=== PATIENT | female | born 1935 | race Caucasian/White ===

== ENCOUNTER 2019-08-27 06:12 | Inpatient (IN) | payer MEDICARE, MEDICAID ==
[~2019-08-27] VITALS: Ht 162.6 cm; Wt 87.1 kg
--- NOTE | 2019-08-27 06:27 | NUR ---
PT WAS AURELIA MANLEY FROM [facility] FOR C/O ALOC. PT WAS ASSISTED TO THE BED AND WAS PLACED ON A MONITOR. PT WAS ALSO FOUND FEBRILE DURING TRIAGE. ISOLATION PRECAUTION OBSERVED. WILL CONT TO MONITOR.
[2019-08-27] MEDS ORDERED: IV NS 0.9% 1,000 ML BAG IV ONE ×2 (06:30→08:00)
--- NOTE | 2019-08-27 06:30 | NUR ---
URINE COLLECTED AND SENT TO LAB
--- NOTE | 2019-08-27 06:32 | NUR ---
KIRSTEN GASPAR, CALLED AND REQUESTING PT TO BE TRANSFERRED TO [facility]. DR NATION MADE AWARE, CHASITY'S PHONE NUMBER: [phone]
--- NOTE | 2019-08-27 06:33 | NUR ---
Note steven in EDM - 08/27/19 at 0719 by ABIODUN PT WAS BIB RA FROM [facility] FOR C/O ALOC. PT WAS ASSISTED TO THE BED AND WAS PLACED ON A MONITOR. PT WAS ALSO FOUND AFEBRILE DURING TRIAGE. ISOLATION PRECAUTION OBSERVED. WILL CONT TO MONITOR.
[2019-08-27] MEDS ORDERED: ACETAMINOPHEN 650 MG/SUPP.RECT RC ONE ×3 (06:40→07:00)
--- NOTE | 2019-08-27 06:55 | NUR ---
RADIOLOGY AT BEDSIDE FOR XRAY
--- NOTE | 2019-08-27 07:00 | NUR ---
DR JOHNSON ON THE PHONE WITH DR. HDZ.
[2019-08-27 07:12] LABS: BASOPHILS # (AUTO) 0.2 /CMM (0.0-0.2); BASOPHILS % (AUTO) 0.6 % (0.0-2.0); EOSINOPHILS % (AUTO) 0.5 % (0.0-6.0); HEMATOCRIT 45 % (33-45); HEMOGLOBIN 14.2 g/dL (11.5-14.8); LYMPHOCYTES % (AUTO) 18.2 % (20.0-44.0); MEAN CORPUSCULAR HGB CONC 32 g/dl (31.0-36.0); MEAN CORPUSCULAR VOLUME 90 fL (82-100); MONOCYTES # (AUTO) 1.2 /CMM (0.1-1.30); MONOCYTES % (AUTO) 4.2 % (2.0-12.0); NEUTROPHILS % (AUTO) 76.5 % (43.0-81.0); PLATELET COUNT (AUTO) 314 /CMM (150-450); RED BLOOD CELL COUNT(AUTO) 4.96 MIL/uL (4.0-5.2); WHITE BLOOD COUNT (AUTO) 27.5 K/uL (4.3-11.0)
[2019-08-27 07:16] LABS: BILIRUBIN,URINE NEGATIVE (NEGATIVE); BLOOD, URINE TRACE-INTA Ery/uL (NEGATIVE); COLOR,URINE YELLOW (YELLOW); KETONES,URINE NEGATIVE (NEGATIVE); LEUKOCYTE ESTERASE ,URINE SMALL (NEGATIVE); NITRITE, URINE NEGATIVE (NEGATIVE); PROTEIN,URINE NEGATIVE (NEGATIVE); UGLUCOSE NEGATIVE (NEGATIVE); UROBILINOGEN,URINE 0.2 EU/dL (0.2)
[2019-08-27 07:20] LABS: APPEARANCE,URINE SLIGHTLY CLOUDY (CLEAR)
--- NOTE | 2019-08-27 07:20 | NUR ---
covid swab sent
--- NOTE | 2019-08-27 07:21 | NUR ---
CLINICAL INFORMATION FAXED TO [facility] [place] PER DR. HDZ'S REQUEST
--- NOTE | 2019-08-27 07:22 | NUR ---
RECEIVED REPORT FROM EDER CANTRELL FOR [place]. PT IS AAOX1, NOT IN RESPIRATORY DISTRESS, V/S STABLE, KEPT RESTED AND COMFORTABLE. WILL CONTINUE TO MONITOR.
[2019-08-27] MEDS ORDERED: CEFTRIAXONE 1GM BAG (ER ONLY) 50 ML IV ONE ×2 (07:27→07:30)
[2019-08-27 07:30] LABS: ALANINE AMINOTRANSFERASE 23 U/L (12-78); ALKALINE PHOSPHATASE 47 U/L (46-116); ASPARTATE AMINOTRANSFERASE 19 U/L (15-37); BILIRUBIN,DIRECT 0.2 mg/dL (0.0-0.2); BILIRUBIN,TOTAL 0.7 mg/dL (0.2-1.0); CALCIUM, SERUM 9.6 mg/dL (8.5-10.1); CARBON DIOXIDE 19 mmol/L (21-32); CHLORIDE 101 mmol/L (98-107); CREATININE 1.2 mg/dL (0.6-1.3); GLUCOSE 191 mg/dL (74-106); POTASSIUM 3.5 mmol/L (3.5-5.1); SODIUM SERUM 137 mmol/L (136-145); TOTAL PROTEIN, SERUM 6.7 g/dL (6.4-8.2); UREA NITROGEN, BLOOD 15 mg/dL (7-18)
[2019-08-27] MEDS ORDERED: CLINDAMYCIN 600 MG in IV D5W 100 ML IV ONE (07:30)
[2019-08-27 07:45] LABS: BACTERIA,URINE Few /HPF (None Seen); SQUAMOUS EPITHELIAL CELL,UR Many /HPF (None Seen); WBC,URINE 25-35 /HPF (0-3)
--- NOTE | 2019-08-27 08:07 | NUR ---
PAGED [facility].
--- NOTE | 2019-08-27 08:30 | NUR ---
NURSING SUP GAVE 107.
--- NOTE | 2019-08-27 08:55 | NUR ---
REPORT GIVEN TO EDER BAH FOR [place].
[2019-08-27] MEDS ORDERED: FOLI0.8T PO (09:09)
[2019-08-27] MEDS ORDERED: GABA-532 PO (09:09)
[2019-08-27] MEDS ORDERED: BISA10SU11 RC (09:09)
[2019-08-27] MEDS ORDERED: CRAN400C PO (09:09)
[2019-08-27] MEDS ORDERED: LANS30CA56 PO (09:09)
[2019-08-27] MEDS ORDERED: MAGN400O6 PO (09:09)
[2019-08-27] MEDS ORDERED: MULT-134 PO (09:09)
[2019-08-27] MEDS ORDERED: GUAI-671 PO (09:09)
[2019-08-27] MEDS ORDERED: CARV3.12 PO (09:09)
[2019-08-27] MEDS ORDERED: CALC-883 PO (09:09)
[2019-08-27] MEDS ORDERED: CYAN-3 IJ (09:09)
[2019-08-27] MEDS ORDERED: LEVE500T9 PO (09:09)
[2019-08-27] MEDS ORDERED: DOCU-141 PO (09:09)
[2019-08-27] MEDS ORDERED: APIX2.5T PO (09:09)
[2019-08-27] MEDS ORDERED: MIDO5TAB4 PO (09:09)
[2019-08-27] MEDS ORDERED: ERGO50CA PO (09:09)
[2019-08-27] MEDS ORDERED: ASCO500C16 PO (09:09)
[2019-08-27] MEDS ORDERED: LACT1CAP7 PO (09:09)
[2019-08-27] MEDS ORDERED: INSU100I40 SQ (09:09)
[2019-08-27] MEDS ORDERED: LANS15TA5 PO (09:09)
[2019-08-27] MEDS ORDERED: AMOX500C2 PO (09:09)
[2019-08-27] MEDS ORDERED: FLUT16SP16 NS (09:09)
[2019-08-27] MEDS ORDERED: ACET325T53 PEG (09:23)
[2019-08-27] MEDS ORDERED: POLY15DR40 OP (09:23)
[2019-08-27] MEDS ORDERED: LEVA1.2528 IH ×2 (09:23)
[2019-08-27] MEDS ORDERED: PRED5TAB PO (09:23)
[2019-08-27] MEDS ORDERED: HYDR-4384 PO (09:23)
[2019-08-27] MEDS ORDERED: SENN-175 PO (09:23)
[2019-08-27] MEDS ORDERED: MOME17SP (09:23)
[2019-08-27 09:40] VITALS: BP 96/47
--- NOTE | 2019-08-27 09:40 | NUR ---
ADMIT TO [facility] RECEIVED PT BROUGHT IN VIA GURNEY BY ER NURSE. NO CARDIAC OR RESP DISTRESS NOTED ON O2 2L/MIN VIA NC. SATURATING AT 95%. BREATHING EVEN AND UNLABORED. COVID PENDING AT THIS TIME. PT PLACED ON CARDIAC TELE MONITOR SHOWING NSR. IV ACCESS NOTED ON R AC G20. INTACT AND PATENT AND FLUSHING WELL. NO S/S OF INFECTION OR INFILTRATION NOTED. SAFETY PRECAUTIONS IN PLACE. BED LOCKED AND IN LOS POSITION. SIDE RAILS UP X2. BED ALALRM ON. CALL LIGHT WITHIN REACH
[2019-08-27] MEDS ORDERED: IV NS 0.9% 1,000 ML IV PRN (09:46)
[2019-08-27] MEDS ORDERED: BISACODYL SUPP (10 MG) 10 MG/SUPP.RECT SUPP.RECT RC PRN (09:54)
[2019-08-27] MEDS ORDERED: MAG HYDROX/AL HYDROX/SIMETH 30 ML UDC PO PRN (10:00)
[2019-08-27] MEDS ORDERED: HYDROCODONE/APAP 5/325MG 1 EACH TABLET PO PRN (10:00)
[2019-08-27] MEDS ORDERED: ONDANSETRON HCL/PF 4 MG/2 ML VIAL IVP PRN (10:00)
[2019-08-27] MEDS ORDERED: MAGNESIUM HYDROXIDE 30 ML UDC PO PRN (10:00)
[2019-08-27] MEDS ORDERED: ACETAMINOPHEN 325 MG TABLET PO PRN (10:00)
[2019-08-27] MEDS ORDERED: Z GUARD REMEDY 2 OZ OINT TP PRN (10:00)
[2019-08-27] MEDS: CARVEDILOL 3.125 MG TABLET PO SCH ×2 (10:51→17:31)
[2019-08-27] MEDS ORDERED: LACTOBACILLUS RHAMNOSUS GG 1 EACH CAP.SPRINK PO SCH (10:58)
[2019-08-27] MEDS ORDERED: VANCOMYCIN 1.5 GM in IV D5W 500 ML IV ONE (11:02)
[2019-08-27] MEDS ORDERED: FEE PK DOSING 1 MIN EA MC ONE (11:03)
[2019-08-27 11:19] LABS: ABG BASE EXCESS -5.3 mmol/L; ABG OXYGEN SATURATION 93.9 % (92.0-98.5); ABG PCO2 29.8 mmHg (35.0-45.0); ABG PH 7.403 (7.350-7.450); ABG PO2 69.9 mmHg (75.0-100.0); COHb 0.2 % (0.5-1.5); MetHb 0.2 % (0.0-1.5); O2Hb 93.5 % (94.0-97.0); SITE, ABG Right Radial; VENT MODE, BG 3L N/C
[2019-08-27] MEDS: LEVETIRACETAM (250 MG) 250 MG TABLET PO SCH ×2 (11:25→17:32)
[2019-08-27] MEDS ORDERED: PIPERACILLIN /TAZOBACTAM 4.5 G in IV D5W 50 ML IV SCH (12:00)
--- NOTE | 2019-08-27 12:00 | NUR ---
BODY CHECK BODY CHECK DONE, PT NOTED WITH THE FOLLOWING RUE SCATTERED DISCOLORATIONS LUE SCATTERED DISCOLORATIONS L HEEL REDNESS L 1ST TOE REDNESS L BUTTOCK REDNESS R KNEE OLD SURGICAL INCISION R LOWER LEG DISCOLORATIONS R 1ST TOE REDNESS R FOREARM SKIN TEAR
[2019-08-27] MEDS: MIDODRINE HCL (5MG) 5 MG TABLET PO SCH ×2 (12:16→17:00)
[2019-08-27] MEDS: GABAPENTIN 100 MG CAPSULE PO SCH ×3 (12:20→21:19)
[2019-08-27] MEDS: PIPERACILLIN /TAZOBACTAM 3.375 G in IV D5W 50 ML IV SCH ×3 (12:23→23:08)
[2019-08-27] MEDS ORDERED: APIXABAN 2.5 MG TABLET PO SCH (17:00)
[2019-08-27] MEDS ORDERED: MOMETASONE FUROATE NASAL SUSP 17 GM BOTTLE SCH (17:00)
--- NOTE | 2019-08-27 18:50 | NUR ---
TRANSFER PER DENITA BENITEZ, PT WILL BE TRANSFERRED TO [facility].
--- NOTE | 2019-08-27 19:45 | NUR ---
TRANSFER REPORT GIVEN TO JEFFREY GAINES FROM [facility]
--- NOTE | 2019-08-27 19:57 | NUR ---
GLOVE CUTTER CLOSING NOTES PT IN BED ASLEEP BUT AROUSABLE. NO CARDIAC OR RESP DISTRESS NOTED ON O2 2L/MIN VIA NC. SATURATING AT 95%. BREATHING EVEN AND UNLABORED. COVID PENDING AT THIS TIME. PT PLACED ON CARDIAC TELE MONITOR SHOWING NSR. IV ACCESS NOTED ON R AC G20. INTACT AND PATENT AND FLUSHING WELL. NO S/S OF INFECTION OR INFILTRATION NOTED. SAFETY PRECAUTIONS IN PLACE. BED LOCKED AND IN LOS POSITION. SIDE RAILS UP X2. BED ALARM ON. CALL LIGHT WITHIN REACH. REPORT GIVEN TO JHONATHAN FOR [place]. ALL D/C PACKET AND PAPER WORKS PREPARED AND COMPLETED.
[2019-08-27 20:00] VITALS: BP 113/65
--- NOTE | 2019-08-27 20:00 | NUR ---
RN NOTE RECEIVED PT IN BED, AO X1-2, SPEAKS AND UNDERSTANDS TAJIK ONLY, NO S/SX OF ACUTE DISTRESS AT THIS TIME. NO SOB NOTED. BREATHING IS EVEN AND UNLABORED. SATURATING >95% AT 4 LPM. PATIENT ON TELE MONITOR READING SR AT 80'S. NOTED IV SITE AT RAC G20 WITH NS AT 75 ML/HR; PATENT AND FLUSHING WELL ,NO S/S OF INFECTION OR INFILTRATION. MULTIPLE DISCOLORATION NOTED AT BUE, L BUTTOCK, R KNEE, RLE, B GREAT TOES, AND SKIN TEAR AT RIGHT FOREARM. SAFETY MEASURES IMPLEMENTED PER PROTOCOL. PATIENT BED ALARM IS ON. HEAD OF BED ELEVATED. BED IS LOCKED, IN LOWEST POSITION AND SIDE RAILS UPX2. CALL LIGHT WITHIN REACH OF THE PATIENT. WILL CONTINUE TO MONITOR AND REASSESS FOR ANY CHANGES.
--- NOTE | 2019-08-27 21:00 | NUR ---
RN NOTE STARTED ANOTHER IV LINE AT [facility] USING G24, IV LINE AT RAC MAY GET DISLODGED DURING MOVEMENT. ASEPTIC TECHNIQUE WAS OBSERVED. GI[facility]NY PATENT AND FLUSHING WELL. NEEDS ATTENDED AND ANTICIPATED. KEPT CLEAN DRY AND COMFORTABLE. CALL LIGHT WITHIN EACH . PATIENT FOR TRANSFER TO [facility] REQUESTED BY FAMILY. AWAITING AMBULANCE.
--- NOTE | 2019-08-27 21:30 | NUR ---
paz rn notes Again follow up status of ambulance spoke again to domingo again she said there coming .waiting for transportation.
[2019-08-27] MEDS ORDERED: SENNOSIDES 8.6 MG TABLET PO SCH (22:00)
--- NOTE | 2019-08-27 22:30 | NUR ---
RN NOTE AMBULANCE ARRIVED HOWEVER, BLS ONLY, NO PROC TECH. PATIENT ON RUSSELL STATUS AND CANNOT BE TRANSFERRED WITHOUT PROC TECH. SURGEON'S ASSISTANT MADE AWARE.
--- NOTE | 2019-08-27 22:30 | NUR ---
deana rn notes Ambulance arrived but only BLS . Pts is a Deana status ,spoke to [facility] spoke to Bell relayed concerned she said right now they cannot provide acls so they have to find another ambulance with acls, md enriquez made aware . place a call to [facility] spoke to harry made them aware that pts will be transfer bari not tonite. spoke to noah clay made aware ,of what happen ,she said she does not want the pts to tranfer in the middle of the nite, will let her know what time the pts gonna be transfer in the morning .will update her.ride assembly supervisor keshia made aware of incidence.
--- NOTE | 2019-08-27 22:48 | NUR ---
paz rn notes follow up ambulance [facility] spoke to [facility] she said ambulance is coming at 9pm.
[2019-08-28] VITALS: BP 112/49
--- NOTE | 2019-08-28 00:15 | NUR ---
paz rn notes spoke to elaine from [facility] requesting for ambulance with acls with reference #[id number] will follow up in a hour .
--- NOTE | 2019-08-28 02:00 | NUR ---
paz rn notes informed noah daughter pts eta to transfer to [facility] is 3am , she said she does not want 3am ,instead she want 7am , spoke to jasiel from [facility] and she said she gonna arrange for 7am with new trip #[id number]. [facility] made aware.
--- NOTE | 2019-08-28 02:10 | NUR ---
RN NOTE NOTED NEW EMT SNUFF CONTAINER INSPECTOR SCHEDULE FOR TRANSFER TO [facility] AT 0700 PER CATH LAB TECHNOLOGIST VERIFIED WITH LATIA OF [facility]. CALLED [facility], SPOKE WITH SAGAR FROM [facility], NOTIFIED AND ACKNOWLEDGED NEW SCHEDULE.
--- NOTE | 2019-08-28 02:17 | NUR ---
LAB CALLED WITH NEGATIVE COVID RESULT.
--- NOTE | 2019-08-28 03:00 | NUR ---
RN NOTE NOTED NEGATIVE COVID TEST RESULT X2. CALLED [facility], SPOKE WITH YANCI [place] [address] [place] [address]. ADVISED OF NEGATIVE COVID STATUS. ACKNOWLEDGED INFORMATION GIVEN.
[2019-08-28 04:00] VITALS: BP 115/61
[2019-08-28] MEDS: PIPERACILLIN /TAZOBACTAM 3.375 G in IV D5W 50 ML IV SCH (05:08)
[2019-08-28 06:30] LABS: BASOPHILS # (AUTO) 0.1 /CMM (0.0-0.2); BASOPHILS % (AUTO) 0.8 % (0.0-2.0); EOSINOPHILS % (AUTO) 2.1 % (0.0-6.0); HEMATOCRIT 37 % (33-45); HEMOGLOBIN 12.1 g/dL (11.5-14.8); LYMPHOCYTES # (AUTO) 2.1 /CMM (0.8-4.8); LYMPHOCYTES % (AUTO) 17.3 % (20.0-44.0); MEAN CORPUSCULAR HGB CONC 32 g/dl (31.0-36.0); MEAN CORPUSCULAR VOLUME 91 fL (82-100); MONOCYTES # (AUTO) 0.7 /CMM (0.1-1.30); MONOCYTES % (AUTO) 5.8 % (2.0-12.0); NEUTROPHILS # (AUTO) 8.9 /CMM (1.8-8.9); PLATELET COUNT (AUTO) 202 /CMM (150-450); RED BLOOD CELL COUNT(AUTO) 4.13 MIL/uL (4.0-5.2)
--- NOTE | 2019-08-28 07:20 | NUR ---
RN NOTE PATIENT TRANSFERRED TO [facility]. REPORT GIVEN TO EMT PERSONNEL, REMINDED OF NEGATIVE COVID TEST RESULT X2. BELONGINGS ACCOUNTED FOR, IV ACCESS AT [facility] AND [facility] INTACT. PATIENT ON SUPPLEMENTAL OXYGEN AT 2 LPM. VITAL SIGNS STABLE, NO ACUTE DISTRESS NOTED, BREATHING UNLABORED. PATIENT PICKED UP VIA AMBULANCE IN A GURNEY ACCOMPANIED BY 2 EMT PERSONNEL IN STABLE CONDITION.
--- NOTE | 2019-08-28 07:25 | NUR ---
RN NOTE TELEPHONE CALL TO [facility] TO ADVISE PATIENT HAS BEEN PICKED BY AMBULANCE AND IS NOW ON THE WAY. SPOKE WITH SAGAR GAINES. SAID THEY THOUGHT THE TRANSFER WAS CANCELLED PATIENT IS NEGATIVE AND THE INITIAL ROOM NUMBER ASSIGNED ROOM 567 IS IN A COVID UNIT. SAGAR GAINES TALKED TO THE ADVANCED MANUFACTURING ENGINEER, PUT THE CALL ON HOLD FOR A FEW MINUTES, CAME BACK AND SAID SHE ADVISED THE ADVANCED MANUFACTURING ENGINEER OF THE SITUATION, SAID THEY ARE STILL TRYING TO FIND A ROOM FOR THE PATIENT IN A NON COVID UNIT. WILL ENDORSE TO AM SHROUD LINE TIER
--- NOTE | 2019-08-28 08:18 | NUR ---
GAVE REPORT TO GEMA GAINES FROM [facility] ,PT. WENT TO [facility] [phone].
[2019-08-28] MEDS ORDERED: DOCUSATE SODIUM 100 MG CAPSULE PO SCH (09:00)
[2019-08-28] MEDS ORDERED: VANCOMYCIN 1.25 GM in IV D5W 250 ML IV SCH (09:00)
== END 2019-08-28 07:12 | disposition short-term general hospital (02) | DRG 133 ==
LOC: ER 06:12 → TELE-TD 09:13
PROVIDERS: ADMIT Internal Medicine; ATTEND Internal Medicine
DX: J96.01 Acute respiratory failure with hypoxia (principal); J69.0 Pneumonitis due to inhalation of food and vomit; E11.9 Type 2 diabetes mellitus without complications; G40.909 Epilepsy, unspecified, not intractable, without status epilepticus; I25.10 Atherosclerotic heart disease of native coronary artery without angina pectoris; N39.0 Urinary tract infection, site not specified; M06.9 Rheumatoid arthritis, unspecified; I50.9 Heart failure, unspecified; I11.0 Hypertensive heart disease with heart failure; Z86.711 Personal history of pulmonary embolism; Z86.73 Personal history of transient ischemic attack (TIA), and cerebral infarction without residual deficits; Z79.52 Long term (current) use of systemic steroids
CPT/HCPCS: 36415; 36600; 71045-TC; 80048-TC; 80076-TC; 81000-TC; 82803-TC; 83605-TC; 84484-TC; 85025-TC; 85730-TC; 87040-TC; 87081-TC; 87086-TC; 94799-TC; G0378; J0696; J2543; J3370; J3490; J7030; J7060; U0003-CS